=== PATIENT | male | born 1975 | race Caucasian/White ===

== ENCOUNTER 2016-09-16 03:12 | Emergency (ER) | payer SELFPAY | END 2016-09-16 03:55 | disposition home or self-care (01) | LOC: ER1 03:12 | DX: L03.811 Cellulitis of head [any part, except face] (principal) | CPT/HCPCS: 99282 ==

== ENCOUNTER 2021-11-01 16:49 | Emergency (ER) | payer BC | END 2021-11-01 19:01 | disposition left against medical advice (07) | LOC: ER1 16:49 | DX: Z53.21 Procedure and treatment not carried out due to patient leaving prior to being seen by health care provider (principal) ==